=== PATIENT | male | born 1990 | race Caucasian/White ===

== ENCOUNTER 2018-06-10 17:43 | Emergency (ER) | payer OTHER ==
[~2018-06-10] VITALS: Ht 182.9 cm; Wt 97.5 kg
[2018-06-10 17:50] VITALS: BP 115/63
[2018-06-10] MEDS ORDERED: HYDROcodone-ACET 10/325MG TAB PO ONE (18:45)
== END 2018-06-11 00:20 | disposition left against medical advice (07) ==
LOC: ER 17:43
DX: S80.811A Abrasion, right lower leg, initial encounter (principal); Z53.21 Procedure and treatment not carried out due to patient leaving prior to being seen by health care provider; W01.0XXA Fall on same level from slipping, tripping and stumbling without subsequent striking against object, initial encounter; Y93.89 Activity, other specified; Y92.89 Other specified places as the place of occurrence of the external cause; Y99.8 Other external cause status

== ENCOUNTER 2018-07-02 02:54 | Emergency (ER) | payer OTHER ==
[~2018-07-02] VITALS: Ht 182.9 cm; Wt 104.3 kg
[2018-07-02 03:49] LABS: Basophils # (auto) 0 uL; Basophils % (auto) 0.4 % (0.0-2.0); Eosinophils # (auto) 0 uL; Eosinophils % (auto) 0.2 % (0.0-7.0); Hematocrit 42.7 % (41.0-53.0); Hemoglobin 13.7 g/dL (13.5-17.5); Lymphocytes # (auto) 1.8 uL; Lymphocytes % (auto) 14.2 % (10.0-50.0); Mean Corpuscular Hemoglobin 29.1 pg (28.0-32.0); Mean Corpuscular Hgb Conc. 32.2 g/dL (32.0-36.0); Mean Corpuscular Volume 90.5 fL (80.0-100.0); Monocytes # (auto) 0.7 uL; Monocytes % (auto) 5.8 % (0.0-12.0); Neutrophils # (auto) 9.8 uL; Neutrophils % (auto) 79.4 % (37.0-80.0); Nucleated Red Blood Cells % 0.1 %; Platelet Count (auto) 365 10^3/uL (140-450); Red Blood Cells 4.72 10^6/uL (4.5-5.90); Red Cell Distribution Width 13.2 % (11.8-14.3); White Blood Cell 12.3 10^3/uL (4.4-10.8)
[2018-07-02 04:19] LABS: Urine Bacteria FEW /hpf (None Seen); Urine Blood Negative /uL (Negative); Urine Mucus FEW (None Seen); Urine Specific Gravity 1.029 (1.001-1.035); Urine WBC 10 /hpf (0 - 3)
[2018-07-02 04:23] LABS: Albumin 4.3 g/dL (3.4-5.0); Anion Gap 9 (5-15); Aspartate Aminotransferase 20 U/L (15-37); BUN/Creatinine Ratio 9.2; Blood Urea Nitrogen 11 mg/dL (7-18); Carbon Dioxide 26 mmol/L (21-32); Chloride 105 mmol/L (98-107); GFR African American 94 mL/min; GFR Non-African American 78 mL/min; Glucose 121 mg/dL (74-106); Lipase 79 U/L (73-393); Potassium 3.5 mmol/L (3.5-5.1); Sodium 140 mmol/L (136-145)
[2018-07-02 04:28] LABS: Alanine Aminotransferase 28 U/L (16-61); Alkaline Phosphatase 67 U/L (45-117); Bilirubin, Total 0.3 mg/dL (0.2-1.0)
[2018-07-02] MEDS ORDERED: ONDANSETRON HCL 4 MG/2 ML VIAL IV ONE (05:25)
[2018-07-02] MEDS ORDERED: MORPHINE SULFATE 4 MG/ML SYR/VIAL IV ONE ×2 (05:33→06:45)
[2018-07-02] MEDS ORDERED: FAMOTIDINE (10MG/ML) 2ML VL IV ONE (06:45)
[2018-07-02 07:15] LABS: Alcohol, Urine < 3.0 mg/dL (0-5); Amphetamine Screen, Urine NEGATIVE (NEGATIVE); Barbiturate Scree,Urine NEGATIVE (NEGATIVE); Benzodiazephine Screen, Urine NEGATIVE (NEGATIVE); Cannabinoid Screen, Urine POSITIVE (NEGATIVE); Cocaine Screen, Urine NEGATIVE (NEGATIVE); Opiate Scree,Urine NEGATIVE (NEGATIVE); Phencyclidine Screen, Urine NEGATIVE (NEGATIVE)
[2018-07-02 07:35] VITALS: BP 132/74
== END 2018-07-02 08:11 | disposition home or self-care (01) ==
LOC: ER 02:55
DX: F12.188 Cannabis abuse with other cannabis-induced disorder (principal); F17.210 Nicotine dependence, cigarettes, uncomplicated; F12.10 Cannabis abuse, uncomplicated
CPT/HCPCS: 36415; 80053; 80307; 81001; 83690; 83735; 84484; 85025; 93005; 96374; 96375; 96376; 99284; J2270; J2405; J3490

== ENCOUNTER 2019-03-31 12:41 | Emergency (ER) | payer MEDICAID ==
[~2019-03-31] VITALS: Ht 182.9 cm; Wt 90.7 kg
[2019-03-31 12:58] VITALS: BP 110/65
[2019-03-31] MEDS ORDERED: SODIUM CHLORIDE 0.9% 1,000 ML IVB ONE (13:11)
[2019-03-31] MEDS ORDERED: PANTOPRAZOLE 40 MG/10 ML VIAL INJ IV STA (13:11)
[2019-03-31] MEDS ORDERED: MORPHINE SULFATE 4 MG/ML SYR/VIAL IV ONE (13:15)
[2019-03-31] MEDS ORDERED: PROCHLORPERAZINE EDISYLATE 5 MG/ML 2ML VIAL IV ONE (13:15)
[2019-03-31 13:58] LABS: Basophils # (auto) 0 uL; Basophils % (auto) 0.2 % (0.0-2.0); Eosinophils # (auto) 0 uL; Eosinophils % (auto) 0.2 % (0.0-7.0); Hematocrit 38.3 % (41.0-53.0); Hemoglobin 12.2 g/dL (13.5-17.5); Lymphocytes # (auto) 0.6 uL; Lymphocytes % (auto) 6.9 % (10.0-50.0); Mean Corpuscular Hemoglobin 29.2 pg (28.0-32.0); Mean Corpuscular Hgb Conc. 31.8 g/dL (32.0-36.0); Mean Corpuscular Volume 91.8 fL (80.0-100.0); Monocytes # (auto) 0.2 uL; Monocytes % (auto) 2.6 % (0.0-12.0); Neutrophils # (auto) 8.5 uL; Neutrophils % (auto) 90.1 % (37.0-80.0); Nucleated Red Blood Cells % 0.2 %; Platelet Count (auto) 381 10^3/uL (140-450); Red Blood Cells 4.17 10^6/uL (4.5-5.90); Red Cell Distribution Width 13.1 % (11.8-14.3); White Blood Cell 9.4 10^3/uL (4.4-10.8)
[2019-03-31 14:19] LABS: Albumin 4.3 g/dL (3.4-5.0); Calcium 9.4 mg/dL (8.5-10.1); Potassium 3.6 mmol/L (3.5-5.1)
[2019-03-31 14:24] LABS: BUN/Creatinine Ratio 6.4; Bilirubin, Total 0.3 mg/dL (0.2-1.0); Total Protein 9.3 g/dL (6.4-8.2)
== END 2019-03-31 20:06 | disposition home or self-care (01) ==
LOC: ER 12:41
DX: F12.188 Cannabis abuse with other cannabis-induced disorder (principal); F17.210 Nicotine dependence, cigarettes, uncomplicated; Z87.11 Personal history of peptic ulcer disease
CPT/HCPCS: 36415; 80053; 83690; 85025